=== PATIENT | male | born 1985 | race Two or more races ===

== ENCOUNTER 2017-11-03 04:25 | Emergency (ER) | payer SELFPAY ==
[~2017-11-03] VITALS: Ht 170.2 cm; Wt 70.3 kg
--- NOTE | 2017-11-03 04:25 | NUR ---
PRATEEK CHÁVEZ 89 FROM HIS JOB C/O OVERDOSE ON "TCH" FROM [place] X 3 HOURS AGO. VSS NAD WILL CONTINUE TO MONITOR FOR ANY CHANGES
[2017-11-03] MEDS ORDERED: LORAZEPAM 1 MG TABLET PO ONE (05:00)
[2017-11-03] MEDS ORDERED: LORAZEPAM 1 MG TABLET ONE (05:02)
--- NOTE | 2017-11-03 05:14 | NUR ---
EKG AT BEDSIDE
[2017-11-03 05:49] VITALS: BP 130/88
== END 2017-11-03 05:56 | disposition home or self-care (01) ==
LOC: ER 04:27
DX: F41.0 Panic disorder [episodic paroxysmal anxiety] (principal); R94.31 Abnormal electrocardiogram [ECG] [EKG]; F12.10 Cannabis abuse, uncomplicated
CPT/HCPCS: A4606; Z7610